=== PATIENT | male | born 1975 | race African-American/Black ===

== ENCOUNTER 2022-08-02 07:34 | Emergency (ER) | payer SELFPAY ==
[~2022-08-02] VITALS: Ht 175.3 cm; Wt 66.0 kg
[2022-08-02] MEDS ORDERED: IBUPROFEN 600MG TABLET PO STA (08:22)
[2022-08-02 08:48] LABS: HEMATOCRIT. 41.9 % (42.0-52.0); HEMOGLOBIN. 14.4 g/dL (14.0-18.0); MEAN CORPUSCULAR HEMOGLOBIN 31.1 pg (28.0-32.0); MEAN CORPUSCULAR VOLUME 90.8 fL (80.0-94.0); MEAN PLATELET VOLUME 8.8 fl (7.4-10.4); PLATELET 167 x1000/uL (130-400); RED BLOOD CELL COUNT 4.61 mill/uL (4.7-6.1); RED CELL DISTRIBUTION WIDTH 12.8 % (11.6-14.6)
[2022-08-02 09:05] LABS: CHLORIDE 105 mEq/L (98-107)
[2022-08-02 10:32] LABS: PLATELET ESTIMATE NORMAL
[2022-08-02 12:00] VITALS: BP 104/56
[2022-08-02] MEDS ORDERED: IBUP-2029 MT (12:33)
== END 2022-08-02 13:58 | disposition home or self-care (01) ==
LOC: ER 07:52
DX: R07.89 Other chest pain (principal); R51.9 Headache, unspecified
CPT/HCPCS: 36415; 71045; 80053; 84484; 85025; 93005; 99285